=== PATIENT | female | born 1965 | race Hispanic/Latino ===

== ENCOUNTER → 2024-01-02 | Day surgery (SDC) | payer OTHER ==
[~2024-01-02] MED LIST: LIDOCAINE HCL 2% LOCAL INJ 5 ML SDV VIAL INJ ONE; MIDAZOLAM HCL 2 MG/2 ML VIAL ONE; PROPOFOL IV EMULSION 10 MG/ML 20 ML VIAL ONE
[2024-01-02] MEDS: LACTATED RINGER'S 1,000 ML ONE (08:11)
[2024-01-02 09:50] VITALS: BP 115/76; PULSE 68; RESP 15; TEMP 97.4; O2SAT 98
== END | disposition home or self-care (01) ==
LOC: OR 07:36
PROVIDERS: ATTEND Internal Medicine Gastroenterology
DX: Z12.11 Encounter for screening for malignant neoplasm of colon (principal); D12.3 Benign neoplasm of transverse colon; D12.4 Benign neoplasm of descending colon; D18.03 Hemangioma of intra-abdominal structures; R77.2 Abnormality of alphafetoprotein; R74.8 Abnormal levels of other serum enzymes; R89.4 Abnormal immunological findings in specimens from other organs, systems and tissues; E78.5 Hyperlipidemia, unspecified
CPT/HCPCS: 45384; 45385; 93005; J2003; J2250; J2704; J7121